=== PATIENT | female | born 1990 | race Caucasian/White ===

== ENCOUNTER 2016-12-19 14:06 | Inpatient (IN) | payer OTHER ==
[~2016-12-19] VITALS: Ht 157.5 cm; Wt 80.7 kg
[~2016-12-19 14:06] MED LIST: MOTRIN 600600 MG/TAB PO; PERCOCET 325 MG1 TA2 PO; PRENATAL1 TA1 PO
[2017-01-11] MEDS ORDERED: MAKENA250 MG/1 M IM (21:07)
[2017-01-11] MEDS ORDERED: PRENATAL1 TA7 PO (21:08)
[2017-01-27] VITALS (36 sets, daily range): BP systolic 91–122; BP diastolic 52–80; PULSE 66–120; TEMP 97.4–98.5
[2017-01-27 08:33] LABS: BASO % 0.2 % (0.0-2.0); EOS # 0.1 (0.0-0.7); EOS % 1.2 % (0-4.0); GRAN # 6.4 (1.4-6.5); GRAN % 65.5 % (42.2-75.2); LYMPH # 2.5 (1.2-3.4); LYMPH % 25.5 % (20.0-51.0); MEAN CELL VOLUME 87 fl (80.0-100.0); MEAN CORPUSCULAR HEMOGLOBIN 30 pg (27.0-31.0); MEAN CORPUSCULAR HGB CONC 35 g/dl (33.0-37.0); MEAN PLATELET VOLUME 11.1 fl (7.4-10.4); MONO # 0.7 (0.1-0.6); MONO % 6.6 % (1.7-9.3); PLATELET COUNT 192 K/mm3 (130-400); RED BLOOD COUNT 4.01 M/mm3 (4.10-5.30); WHITE BLOOD COUNT 9.8 K/mm3 (4.8-10.8)
[2017-01-27 08:34] LABS: HEMATOCRIT 34.7 % (37.0-47.0)
[2017-01-28 02:30] VITALS: BP 116/74; PULSE 86; TEMP 97.6
[2017-01-28 07:35] VITALS: BP 115/72; PULSE 79; TEMP 98.1
[2017-01-28 16:49] VITALS: BP 114/71; PULSE 107
[2017-01-28 20:00] VITALS: BP 111/63; PULSE 75; TEMP 98.1
[2017-01-29 07:15] VITALS: BP 109/77; PULSE 80; TEMP 97.8
== END 2017-01-29 13:45 | disposition home or self-care (01) | DRG 775 ==
LOC: EDSTATUS 01-18 12:56 → LDRO 01-18 14:06 → LDR 01-27 07:09 → OB 01-27 16:30
PROVIDERS: Student in an Organized Health Care Education/Training Program
PROC: 10E0XZZ Delivery of Products of Conception, External Approach (ICD-10-PCS; principal; 2017-01-27)
PROC: 0UQMXZZ Repair Vulva, External Approach (ICD-10-PCS; 2017-01-27)
PROC: 3E033VJ Introduction of Other Hormone into Peripheral Vein, Percutaneous Approach (ICD-10-PCS; 2017-01-27)
DX: O99.824 Streptococcus B carrier state complicating childbirth (principal); O69.81X0 Labor and delivery complicated by cord around neck, without compression, not applicable or unspecified; O71.82 Other specified trauma to perineum and vulva; O70.9 Perineal laceration during delivery, unspecified; Z3A.39 39 weeks gestation of pregnancy; Z37.0 Single live birth
CPT/HCPCS: J2540; J2590; J7120

== ENCOUNTER 2017-01-11 20:38 | Outpatient (CLI) | payer OTHER ==
[~2017-01-11] VITALS: Ht 157.5 cm; Wt 79.5 kg
[2017-01-11 20:50] VITALS: BP 116/73; PULSE 113
[2017-01-11] MEDS ORDERED: MAKENA250 MG/1 M IM (21:07)
[2017-01-11] MEDS ORDERED: PRENATAL1 TA7 PO (21:08)
[2017-01-11 21:15] VITALS: BP 106/66; PULSE 85
== END 2017-01-11 21:25 | disposition home or self-care (01) ==
LOC: LDRO 20:38
DX: O42.113 Preterm premature rupture of membranes, onset of labor more than 24 hours following rupture, third trimester (principal); Z3A.36 36 weeks gestation of pregnancy

== ENCOUNTER 2019-09-29 13:51 | Inpatient (IN) | payer BC ==
[2019-09-29] VITALS (20 sets, daily range): BP systolic 93–125; BP diastolic 49–85; PULSE 68–117; TEMP 97.3–98.1
[~2019-09-29] VITALS: Ht 160 cm; Wt 80.0 kg
--- NOTE | 2019-09-29 13:50 | NUR ---
PATIENT HERE IN LABOR AND DELIVERY. PATIENT CHANGED IN GOWN. PATIENT STATES HER WATER HAS BEEN LEAKING. ON EFM. SVE /-2. STEVEN RUPTURE NOTED. AMNISWAB BLUE.
[~2019-09-29 13:51] MED LIST changes: +MAKENA250 MG/1 M IM; +PRENATAL1 TA7 PO
[2019-09-29 14:46] LABS: BASO % 0.2 % (0.0-2.0); EOS # 0.1 (0.0-0.7); EOS % 0.6 % (0-4.0); GRAN # 6.6 (1.4-6.5); GRAN % 68.6 % (42.2-75.2); HEMOGLOBIN 11.9 g/dl (12.5-16.0); LYMPH # 2.2 (1.2-3.4); LYMPH % 22.8 % (20.0-51.0); MEAN CELL VOLUME 86 fl (80.0-100.0); MEAN CORPUSCULAR HEMOGLOBIN 29 pg (27.0-31.0); MEAN CORPUSCULAR HGB CONC 34 g/dl (33.0-37.0); MEAN PLATELET VOLUME 10.8 fl (7.4-10.4); MONO # 0.6 (0.1-0.6); MONO % 6.4 % (1.7-9.3); PLATELET COUNT 194 K/mm3 (130-400); RED BLOOD COUNT 4.09 M/mm3 (4.10-5.30); REDCELL DISTRIBUTION WIDTH-CV 12.6 % (11.5-14.5)
[2019-09-29 14:52] LABS: HEMATOCRIT 35.1 % (37.0-47.0)
--- NOTE | 2019-09-29 16:50 | NUR ---
BY DR HARRIS. VIABLE MALE TO CHEST. IN CARE OF NADER ZARAGOZA. PLACENTA DELVERED AT 1658. FUNDAL MASSAGE PROVIDED. PITOCIN 333MLS/ HR. PERIURETHRAL TEAR REPAIRED BY DR HARRIS. ICE PACK TO PERINEUM RECOVERY STARTED AT 1700
--- NOTE | 2019-09-29 19:20 | NUR ---
Pt states she feels the need to void. Pt able to lift and hold each leg off of bed for 5 seconds. Pt repsitioned to sitting on edge of bed. Epidural catheter removed. Tip smooth, blue, and intact. Pt able to ambulate to bathroom independently. 900 mL clear, yellow urine out. Pericare explained and provided. Mesh panties and peripad applied. Clean gown on. Pt transferred to room 208 in stable condition with belongings.
[2019-09-30 00:05] VITALS: BP 123/74; PULSE 87; TEMP 97.7
[2019-09-30 04:50] VITALS: BP 115/73; PULSE 75; TEMP 97.6
[2019-09-30 08:15] VITALS: BP 116/66; PULSE 99; TEMP 97.7
[2019-09-30 12:30] VITALS: BP 101/60; PULSE 83; TEMP 97.9
[2019-09-30 15:45] VITALS: BP 130/83; PULSE 74; TEMP 97.7
[2019-09-30 20:47] VITALS: BP 110/64; PULSE 79; TEMP 98.5
[2019-10-01 08:30] VITALS: BP 108/70; PULSE 93; TEMP 97.7
[2019-10-01] MEDS ORDERED: IBU600 MG PO (10:41)
[2019-10-01 15:30] VITALS: BP 110/64; PULSE 80; TEMP 97.6
== END 2019-10-01 16:50 | disposition home or self-care (01) | DRG 807 ==
LOC: LDRO 13:51 → LDR 14:10 → OB 19:30
PROVIDERS: ADMIT Obstetrics & Gynecology
PROC: 10E0XZZ Delivery of Products of Conception, External Approach (ICD-10-PCS; principal; 2019-09-29)
PROC: 0UQMXZZ Repair Vulva, External Approach (ICD-10-PCS; 2019-09-29)
DX: O99.824 Streptococcus B carrier state complicating childbirth (principal); Z37.0 Single live birth; Z3A.39 39 weeks gestation of pregnancy; O71.82 Other specified trauma to perineum and vulva
CPT/HCPCS: J2540; J2590; J2795; J7120